=== PATIENT | male | born 1940 | race Caucasian/White ===

== ENCOUNTER 2020-07-19 07:48 | Outpatient (REF) | payer MEDICARE, SELFPAY | END 2020-07-19 07:49 | disposition home or self-care (01) | LOC: HO.MDS 07:48 | PROVIDERS: PCP Internal Medicine; Visit Provider Psychiatry & Neurology Neurology | DX: G61.81 Chronic inflammatory demyelinating polyneuritis (principal) | CPT/HCPCS: 96365; 96366; J1572 ==

== ENCOUNTER 2020-07-22 07:28 | Outpatient (REF) | payer MEDICARE, SELFPAY | END 2020-07-22 07:29 | disposition home or self-care (01) | LOC: HO.MDS 07:28 | PROVIDERS: PCP Internal Medicine; Visit Provider Psychiatry & Neurology Neurology | DX: G61.81 Chronic inflammatory demyelinating polyneuritis (principal) | CPT/HCPCS: 96365; 96366; J1572 ==

== ENCOUNTER 2020-07-23 07:23 | Outpatient (REF) | payer MEDICARE, SELFPAY | END 2020-07-23 07:24 | disposition home or self-care (01) | LOC: HO.MDS 07:23 | PROVIDERS: PCP Internal Medicine; Visit Provider Psychiatry & Neurology Neurology | DX: G61.81 Chronic inflammatory demyelinating polyneuritis (principal) | CPT/HCPCS: 96365; 96366; J1572 ==

== ENCOUNTER 2020-07-24 07:26 | Outpatient (REF) | payer MEDICARE, SELFPAY | END 2020-07-24 07:27 | disposition home or self-care (01) | LOC: HO.MDS 07:26 | PROVIDERS: PCP Internal Medicine; Visit Provider Psychiatry & Neurology Neurology | DX: G61.81 Chronic inflammatory demyelinating polyneuritis (principal) | CPT/HCPCS: 96365; 96366; J1572 ==

== ENCOUNTER 2020-07-26 07:28 | Outpatient (REF) | payer MEDICARE, SELFPAY | END 2020-07-26 07:29 | disposition home or self-care (01) | LOC: HO.MDS 07:28 | PROVIDERS: PCP Internal Medicine; Visit Provider Psychiatry & Neurology Neurology | DX: G61.81 Chronic inflammatory demyelinating polyneuritis (principal) | CPT/HCPCS: 96365; 96366; J1572 ==

== ENCOUNTER 2020-09-16 08:39 | Outpatient (REF) | payer MEDICARE, SELFPAY | END 2020-09-16 08:40 | disposition home or self-care (01) | LOC: HO.MDS 08:39 | PROVIDERS: PCP Internal Medicine; Visit Provider Psychiatry & Neurology Neurology | DX: G61.81 Chronic inflammatory demyelinating polyneuritis (principal) | CPT/HCPCS: 96365; 96366; J1572 ==

== ENCOUNTER 2020-09-17 09:53 | Outpatient (REF) | payer MEDICARE, SELFPAY | END 2020-09-17 09:54 | disposition home or self-care (01) | LOC: HO.MDS 09:53 | PROVIDERS: PCP Internal Medicine; Visit Provider Psychiatry & Neurology Neurology | DX: G61.81 Chronic inflammatory demyelinating polyneuritis (principal) | CPT/HCPCS: 96365; 96366; J1572 ==

== ENCOUNTER 2020-09-18 09:45 | Outpatient (REF) | payer MEDICARE, SELFPAY | END 2020-09-18 09:46 | disposition home or self-care (01) | LOC: HO.MDS 09:45 | PROVIDERS: PCP Internal Medicine; Visit Provider Psychiatry & Neurology Neurology | DX: G61.81 Chronic inflammatory demyelinating polyneuritis (principal) | CPT/HCPCS: 96365; 96366; J1572 ==

== ENCOUNTER 2020-09-19 09:40 | Outpatient (REF) | payer MEDICARE, SELFPAY | END 2020-09-19 09:41 | disposition home or self-care (01) | LOC: HO.MDS 09:40 | PROVIDERS: PCP Internal Medicine; Visit Provider Psychiatry & Neurology Neurology | DX: G61.81 Chronic inflammatory demyelinating polyneuritis (principal) | CPT/HCPCS: 96365; 96366; J1572 ==

== ENCOUNTER 2020-09-20 09:57 | Outpatient (REF) | payer MEDICARE, SELFPAY | END 2020-09-20 09:58 | disposition home or self-care (01) | LOC: HO.MDS 09:57 | PROVIDERS: PCP Internal Medicine; Visit Provider Psychiatry & Neurology Neurology | DX: G61.81 Chronic inflammatory demyelinating polyneuritis (principal) | CPT/HCPCS: 96365; 96366; J1572 ==